=== PATIENT | male | born 1950 | race Caucasian/White ===

== ENCOUNTER 2017-11-02 07:35 | Day surgery (SDC) | payer MEDICARE, BC ==
[2017-11-02] MEDS ORDERED: fentaNYL 100 MCG/2 ML SDV ONE (08:14)
[2017-11-02] MEDS ORDERED: Propofol 200 MG/20 ML SDV ONE (08:14)
[2017-11-02] MEDS ORDERED: Cyanocobalamin (Vitamin B12) 1,000 MCG/ML SDV IM ONE (08:15)
[2017-11-02] MEDS ORDERED: Midazolam 1 MG/ML 2 ML SDV ONE (08:15)
[2017-11-02] MEDS ORDERED: Lactated Ringers 1,000 ML IV ONE (08:15)
[2017-11-02] MEDS ORDERED: Glycopyrrolate 0.2 MG/ML 2 ML SYRINGE IVPUSH ONE (08:45)
[2017-11-02] MEDS ORDERED: MVI, Adult with Vitamin K 10 ML, Thiamine 200 MG, Chromium/Copper/Mang/Selen/Zn 1 ML in... IV ONE ×4 (09:45)
[2017-11-02 12:15] VITALS: BP 137/4
--- NOTE | 2017-11-07 18:09 | OR ---
DATE OF PROCEDURE: 11/02/2017 PREOPERATIVE DIAGNOSIS: Upper abdominal pain. POSTOPERATIVE DIAGNOSIS: Normal endoscopic examination status post distal gastrectomy with Lyn-en-Y gastrojejunostomy. OPERATIVE PROCEDURE: Upper GI endoscopy. ANESTHESIA: IV sedation. INDICATION FOR PROCEDURE: The patient is status post a distal gastrectomy with Lyn-en-Y gastrojejunostomy in August 2015 for gastric outlet obstruction. The patient presents now with some abdominal pain. This appears to be somewhat related to his gastrostomy tube location, which has little of a dimple at the skin level, but otherwise appears to be postprandial, may be related to partial small bowel obstruction. Plan is to proceed with upper GI endoscopy with biopsies as indicated. Potential risks including bleeding and perforation were discussed, and the patient wishes to proceed. DESCRIPTION OF PROCEDURE: The patient was taken to the operating room and placed in a left lateral decubitus position. IV sedation was administered, after which the upper GI endoscope was passed orally through the length of the esophagus, into the stomach, and from there through the gastrojejunostomy roughly 20 cm into the Lyn limb. Findings overall were entirely normal. There is no significant inflammation at the esophagus, EG junction or within the stomach. The gastrojejunostomy was mildly patent and no bile reflux was noted within the Lyn limb. The scope was then withdrawn and the procedure concluded. Following was the obvious dimple at the point where the gastrostomy tube had been in place, which would be an expected finding. The patient will be going to [place] for vacation. We will see him back when he gets back from that to discuss further treatment. Alfonso Stone MD /[id number]
== END 2017-11-02 12:25 | disposition home or self-care (01) ==
LOC: JP.SDS 07:35
PROVIDERS: ATTEND Surgery
DX: R10.10 Upper abdominal pain, unspecified (principal); Z90.3 Acquired absence of stomach [part of]; Z98.890 Other specified postprocedural states
CPT/HCPCS: 43235; J2250; J2704; J3010; J3411; J3420; J7120

== ENCOUNTER 2018-01-03 07:30 | Inpatient (IN) | payer MEDICARE, BC ==
[~2018-01-03 07:30] MED LIST: Bupivacaine 0.5%/EPINEPHrine 1:200,000 50 ML MDV ONE
[2018-01-03] MEDS ORDERED: Acetaminophen 500 MG Tab PO ONE (10:00)
[2018-01-03] MEDS ORDERED: Gabapentin 300 MG Cap PO ONE (10:00)
[2018-01-03] MEDS ORDERED: Scopolamine 1.5 MG Transdermal Patch TRDERM SCH (10:00)
[2018-01-03] MEDS ORDERED: Ondansetron 4 MG/2 ML SDV ONE (10:01)
[2018-01-03] MEDS ORDERED: Propofol 200 MG/20 ML SDV ONE (10:01)
[2018-01-03] MEDS ORDERED: Glycopyrrolate 0.2 MG/ML 5 ML MDV ONE (10:01)
[2018-01-03] MEDS ORDERED: Dexamethasone 4 MG/ML SDV ONE (10:01)
[2018-01-03] MEDS ORDERED: Neostigmine Methylsulfate 1 MG/ML 5 ML Syringe ONE (10:01)
[2018-01-03] MEDS ORDERED: fentaNYL 250 MCG/5 ML SDV ONE (10:01)
[2018-01-03] MEDS ORDERED: Succinylcholine 200 MG/10 ML MDV ONE (10:01)
[2018-01-03] MEDS ORDERED: Dextrose 5%-Lactated Ringers 1,000 ML IV SCH (10:30)
[2018-01-03] MEDS ORDERED: Albuterol/Ipratropium 3.0-0.5 MG/3 ML Neb Soln NEB ONE (11:00)
[2018-01-03] MEDS ORDERED: cefOXitin 2 GM in Sodium Chloride 0.9% 50 ML IV ONE (11:30)
[2018-01-03] MEDS ORDERED: Lidocaine 2% 100 MG/5 ML Syringe IVPUSH ONE (11:45)
[2018-01-03] MEDS ORDERED: Ketamine 500 MG/5 ML MDV IV SCH (11:45)
[2018-01-03] MEDS ORDERED: Rocuronium 50 MG/5 ML Vial ONE ×2 (11:53→13:33)
[2018-01-03] MEDS ORDERED: Lidocaine 0.4%/D5W 2 GM/500 ML BAG IV SCH (12:00)
[2018-01-03] MEDS ORDERED: Ropivacaine 48 ML, Dexamethasone 8 MG, EPINEPHrine 0.4 MG, Sodium Chloride 0.9% 29.6 ML NERVRT SCH ×4 (12:00)
[2018-01-03] MEDS ORDERED: ePHEDrine 50 MG/ML SDV ONE (12:26)
[2018-01-03] MEDS ORDERED: HYDROmorphone/Normal Saline 15 MG/30 ML PCA IV PRN (12:30)
[2018-01-03] MEDS ORDERED: Naloxone 0.4 MG/ML SDV IV PRN (12:30)
[2018-01-03] MEDS ORDERED: Meropenem 500 MG SDV ONE (12:52)
[2018-01-03] MEDS ORDERED: fentaNYL 100 MCG/2 ML SDV ONE (13:12)
[2018-01-03] MEDS ORDERED: Lactated Ringers 1,000 ML ONE (13:17)
[2018-01-03] MEDS ORDERED: Phenylephrine 1% 10 MG/ML SDV ONE (14:29)
[2018-01-03] MEDS ORDERED: Labetalol 20 MG/4 ML Syringe IVPUSH PRN (17:00)
[2018-01-03] MEDS ORDERED: hydrOXYzine HCl 100 MG/2 ML SDV IM PRN (17:00)
[2018-01-03] MEDS ORDERED: Ondansetron 4 MG/2 ML SDV IVPUSH PRN (17:00)
[2018-01-03] MEDS ORDERED: 50% Dextrose in Water 50 ML Syringe IVPUSH PRN (17:00)
[2018-01-03] MEDS ORDERED: MVI, Adult with Vitamin K 10 ML, Thiamine 100 MG, Chromium/Copper/Mang/Selen/Zn 1 ML in... IV SCH ×4 (17:00)
[2018-01-03] MEDS ORDERED: Glucagon,Human Recombinant 1 MG Vial IM PRN (17:00)
[2018-01-03] MEDS ORDERED: diphenhydrAMINE 50 MG/ML SDV IVPUSH PRN (17:00)
[2018-01-03] MEDS ORDERED: Metoclopramide 10 MG/2 ML SDV IVPUSH PRN (17:00)
[2018-01-03] MEDS: Acetaminophen Soln 650 MG/20.3 ML UD Cup PO SCH ×2 (17:54→22:14)
[2018-01-03] MEDS: Pantoprazole 40 MG Vial IVPUSH SCH (17:57)
[2018-01-03] MEDS: Insulin Aspart 100 Units/ML 3 ML Pen SUBCUT PRN ×2 (18:11→22:58)
[2018-01-03] MEDS: cefOXitin 2 GM in Sodium Chloride 0.9% 50 ML IV SCH (18:21)
[2018-01-03] MEDS ORDERED: Cyclobenzaprine 10 MG Tab PO ONE (20:24)
[2018-01-03] MEDS ORDERED: Cyclobenzaprine 10 MG Tab PO PRN (20:27)
[2018-01-03] MEDS: Gabapentin 250 MG/5 ML Solution ML 470 ML Bottle PO SCH (20:57)
[2018-01-03] MEDS: Heparin Sodium 5,000 Units/ML Vial SUBCUT SCH (20:57)
[2018-01-04] MEDS: Dextrose 5%-Lactated Ringers 1,000 ML IV SCH ×2 (00:02→06:09)
[2018-01-04] MEDS: cefOXitin 2 GM in Sodium Chloride 0.9% 50 ML IV SCH ×3 (00:14→11:39)
[2018-01-04] MEDS ORDERED: Iohexol 647 MG/ML 50 ML SDV PO STA (03:04)
[2018-01-04] MEDS: Acetaminophen Soln 650 MG/20.3 ML UD Cup PO SCH ×4 (04:10→23:21)
[2018-01-04] MEDS: Heparin Sodium 5,000 Units/ML Vial SUBCUT SCH ×3 (04:10→21:05)
[2018-01-04] MEDS: Insulin Aspart 100 Units/ML 3 ML Pen SUBCUT PRN (04:15)
[2018-01-04] MEDS: Celecoxib 200 MG Cap PO SCH (07:18)
[2018-01-04] MEDS: SCOPOLAMINE PATCH CHECK TOP SCH (08:00)
[2018-01-04] MEDS ORDERED: Ondansetron 4 MG Tab.DIS PO PRN (08:05)
[2018-01-04] MEDS ORDERED: Formoterol/Mometasone 200-5 MCG 8.8 GM Inhaler IH SCH (08:30)
[2018-01-04] MEDS: Formoterol/Mometasone 200-5 MCG 8.8 GM Inhaler IH SCH ×2 (09:20→21:05)
--- NOTE | 2018-01-04 10:19 | CR ---
No gross evidence for contrast leakage. Contrast within small bowel loops within the left upper quadr ant.
[2018-01-04] MEDS: Liraglutide (rDNA Origin) 0.6 MG/0.1 ML 3 ML Pen SUBCUT SCH (10:43)
[2018-01-04] MEDS: Aspirin 81 MG Tab.EC PO SCH (10:44)
[2018-01-04] MEDS: DULoxetine 30 MG Cap PO SCH (10:44)
[2018-01-04] MEDS: Tamsulosin 0.4 MG Cap.ER PO SCH (10:44)
[2018-01-04] MEDS: Lisinopril 10 MG Tab PO SCH (10:46)
[2018-01-04] MEDS: Gabapentin 250 MG/5 ML Solution ML 470 ML Bottle PO SCH ×3 (11:37→21:05)
--- NOTE | 2018-01-04 14:45 | PN ---
DATE OF SERVICE: 01/04/2018 SUBJECTIVE: Sushant is postop day one. He has been quite sleepy and had slurred speech. Lidocaine was discontinued. Oral intake was 190. Blood sugar was 275. He states his pain is controlled. REVIEW OF SYSTEMS: Remainder of review of systems negative for any pertinent positives and negatives. OBJECTIVE: GENERAL: Sushant Escobedo is a 67-year-old male. He is quite sleepy, but answers questions appropriately. VITAL SIGNS: TPR is 100.4, 69, 18, and blood pressure 156/78. HEENT: Negative. NECK: Supple. HEART: Regular rate and rhythm. LUNGS: Clear. ABDOMEN: Dressing is dry and intact. Abdominal binder is on. EXTREMITIES: Without peripheral edema. ASSESSMENT: Exploratory laparotomy for partial small-bowel obstruction, bowel resection, and lysis of adhesions. Date of surgery, 01/03/2018. PLAN: 1. Schedule and have consent signed for delayed primary closure, IV sedation, Sunday01/05/2018, Alfonso Stone MD. N.p.o. after midnight. DC D5LR. Lactated Ringer IV at 100 mL per hour. Home medications were restarted: Metformin 500 mg p.o. b.i.d., Flomax 0.4 mg p.o. daily, aspirin 81 mg daily, lisinopril 10 mg p.o. daily, and Victoza 1.8 subcu daily. 2. Step two gastric bypass diet without cereal, good pulmonary toilet, and Tovar catheter was discontinued. We will evaluate him p.r.n. or in a.m. Minal Resendiz PA-C /[id number]
[2018-01-04] MEDS: metFORMIN 500 MG Tab PO SCH (16:54)
[2018-01-04] MEDS: Pantoprazole 40 MG Vial IVPUSH SCH (16:54)
[2018-01-04] MEDS: MVI, Adult with Vitamin K 10 ML, Thiamine 100 MG, Chromium/Copper/Mang/Selen/Zn 1 ML in... IV SCH ×4 (16:57)
[2018-01-05] MEDS: Lactated Ringers 1,000 ML IV SCH ×2 (02:59→09:42)
[2018-01-05] MEDS: Acetaminophen Soln 650 MG/20.3 ML UD Cup PO SCH ×4 (04:36→23:06)
[2018-01-05] MEDS: Heparin Sodium 5,000 Units/ML Vial SUBCUT SCH ×3 (04:42→20:03)
[2018-01-05] MEDS ORDERED: Bupivacaine 0.5% 50 ML MDV ONE (06:46)
[2018-01-05] MEDS ORDERED: Lidocaine 1% with EPINEPHrine 1:100,000 50 ML MDV ONE (06:46)
[2018-01-05] MEDS ORDERED: Meropenem 500 MG SDV ONE (06:46)
[2018-01-05] MEDS ORDERED: Ropivacaine 48 ML, Dexamethasone 8 MG, EPINEPHrine 0.4 MG, Sodium Chloride 0.9% 29.6 ML NERVRT SCH ×4 (07:45)
[2018-01-05] MEDS ORDERED: Propofol 200 MG/20 ML SDV ONE (07:53)
[2018-01-05] MEDS ORDERED: fentaNYL 250 MCG/5 ML SDV ONE (07:54)
[2018-01-05] MEDS ORDERED: Cyanocobalamin (Vitamin B12) 1,000 MCG/ML SDV IM ONE (09:00)
[2018-01-05] MEDS: Gabapentin 250 MG/5 ML Solution ML 470 ML Bottle PO SCH ×3 (09:44→20:03)
[2018-01-05] MEDS: SCOPOLAMINE PATCH CHECK TOP SCH (09:44)
[2018-01-05] MEDS: Celecoxib 200 MG Cap PO SCH (09:47)
[2018-01-05] MEDS: Formoterol/Mometasone 200-5 MCG 8.8 GM Inhaler IH SCH ×2 (09:47→20:03)
[2018-01-05] MEDS: Tamsulosin 0.4 MG Cap.ER PO SCH (09:48)
[2018-01-05] MEDS: Lisinopril 10 MG Tab PO SCH (09:48)
[2018-01-05] MEDS: Aspirin 81 MG Tab.EC PO SCH (09:50)
[2018-01-05] MEDS: metFORMIN 500 MG Tab PO SCH (09:50)
[2018-01-05] MEDS: DULoxetine 30 MG Cap PO SCH (09:50)
[2018-01-05] MEDS: Liraglutide (rDNA Origin) 0.6 MG/0.1 ML 3 ML Pen SUBCUT SCH (09:55)
[2018-01-05] MEDS ORDERED: Lactated Ringers 1,000 ML IV SCH (11:00)
[2018-01-05] MEDS: MVI, Adult with Vitamin K 10 ML, Thiamine 100 MG, Chromium/Copper/Mang/Selen/Zn 1 ML in... IV SCH ×4 (16:59)
[2018-01-05] MEDS: Pantoprazole 40 MG Tab.CR PO SCH (17:02)
[2018-01-06] MEDS: Heparin Sodium 5,000 Units/ML Vial SUBCUT SCH ×3 (03:16→19:19)
[2018-01-06] MEDS: Acetaminophen Soln 650 MG/20.3 ML UD Cup PO SCH ×4 (05:47→23:27)
[2018-01-06] MEDS: Celecoxib 200 MG Cap PO SCH (07:31)
[2018-01-06] MEDS: HYDROmorphone 2 MG Tab PO PRN ×3 (07:31→15:42)
[2018-01-06] MEDS ORDERED: Lactated Ringers 1,000 ML IV SCH (08:15)
[2018-01-06] MEDS: Lisinopril 10 MG Tab PO SCH (10:06)
[2018-01-06] MEDS: Formoterol/Mometasone 200-5 MCG 8.8 GM Inhaler IH SCH ×2 (10:06→20:44)
[2018-01-06] MEDS: Aspirin 81 MG Tab.EC PO SCH (10:06)
[2018-01-06] MEDS: Tamsulosin 0.4 MG Cap.ER PO SCH (10:06)
[2018-01-06] MEDS: DULoxetine 30 MG Cap PO SCH (10:07)
[2018-01-06] MEDS: Gabapentin 250 MG/5 ML Solution ML 470 ML Bottle PO SCH ×3 (10:10→20:44)
[2018-01-06] MEDS ORDERED: Magnesium Hydroxide 400 MG/5 ML Susp 30 ML Cup PO ONE (13:45)
[2018-01-06] MEDS ORDERED: Magnesium Hydroxide 400 MG/5 ML Susp 30 ML Cup PO PRN (13:45)
[2018-01-06] MEDS ORDERED: Bisacodyl 10 MG Supp RECTAL PRN (13:45)
[2018-01-06] MEDS: Pantoprazole 40 MG Tab.CR PO SCH (15:42)
[2018-01-06] MEDS ORDERED: MVI, Adult with Vitamin K 10 ML, Thiamine 100 MG, Chromium/Copper/Mang/Selen/Zn 1 ML in... IV SCH ×4 (16:00)
[2018-01-07] MEDS: Heparin Sodium 5,000 Units/ML Vial SUBCUT SCH (05:06)
[2018-01-07] MEDS: Acetaminophen Soln 650 MG/20.3 ML UD Cup PO SCH (05:06)
[2018-01-07] MEDS: Celecoxib 200 MG Cap PO SCH (07:32)
[2018-01-07] MEDS: Formoterol/Mometasone 200-5 MCG 8.8 GM Inhaler IH SCH (07:47)
[2018-01-07 08:31] VITALS: BP 119/73
[2018-01-07] MEDS: Aspirin 81 MG Tab.EC PO SCH (09:25)
[2018-01-07] MEDS: DULoxetine 30 MG Cap PO SCH (09:25)
[2018-01-07] MEDS: Lisinopril 10 MG Tab PO SCH (09:25)
[2018-01-07] MEDS: Tamsulosin 0.4 MG Cap.ER PO SCH (09:25)
[2018-01-07] MEDS: Gabapentin 250 MG/5 ML Solution ML 470 ML Bottle PO SCH (09:35)
--- NOTE | 2018-01-07 17:26 | PN ---
DATE OF SERVICE: 01/05/2018 The patient has been afebrile with stable vital signs. Oral intake has been fair. We will back down the IV somewhat further. His blood sugars have been running in the low 120s, so I think we will discontinue both the Victoza, metformin, and see how things go from the blood sugar standpoint, off the diabetic medications. He will have the delayed primary closure later this morning. We will keep him on the ADMIN ASSISTANT for today and then sequentially switch him to oral medication tomorrow. Alfonso Stone MD /[id number]
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
--- NOTE | 2018-01-07 17:47 | OR ---
DATE OF PROCEDURE: 01/05/2018 PREOPERATIVE DIAGNOSIS: Open abdominal incision. POSTOPERATIVE DIAGNOSIS: Open abdominal incision. PROCEDURE: Delayed primary closure of open abdominal incision. ANESTHESIA: IV sedation. INDICATION FOR PROCEDURE: This is a 67-year-old status post a small bowel resection and revision of gastrojejunostomy 48 hours ago. He is to undergo a delayed primary closure as at the time of original surgery, he was felt to be high risk for wound infection. Potential risks including bleeding and infection were reviewed, and the patient wishes to proceed. DETAILS OF PROCEDURE: The patient was taken to the operating room, placed in a supine position, sitting up roughly 30 degrees to minimize aspiration risk. The IV sedation was administered, after which the abdomen was prepped and draped. After the dressing had been taken down, the wound was judged to be clean. Bilateral mid abdominal transverse abdominis plane blocks were placed using continuous ultrasound and the midline incision as well as the single trocar site in the right midabdomen were anesthetized with 1% lidocaine mixed with Marcaine and irrigated with meropenem-containing saline solution. The midline incision was then drained with a 10-[place] round Bradley-Shaikh drain, brought through a stab wound, inferior to the main incision, which we fixed the skin with a 4-0 Vicryl skin stitch. The wound was then closed with a layer of 3-0 and 4-0 Vicryl stitch deep and je for the skin. Dressing was applied. The patient was taken to the recovery room in satisfactory condition. Alfonso Stone MD /[id number]
--- NOTE | 2018-01-08 04:44 | DISCH ---
ADDENDUM: DISPOSITION: Discharged to home. CONDITION: Stable and improving. FOLLOWUP APPOINTMENT: Minal Resendiz PA-C, at the [facility] on 01/17/2018 at 10 a.m. HOME MEDICATIONS: 1. Tylenol 650 mg q.6 hours for two weeks. 2. Celebrex 200 mg p.o. daily, #14. 3. Imodium A-D 2 mg oral as directed, #30. 4. Zofran ODT 4 mg q.4 hours p.r.n. nausea, #30. He is to resume his home medications of 1. Cymbalta 60 mg daily. 2. Neurontin 300 mg three times a day. 3. Prinivil 10 mg oral daily. 4. Protonix granules 40 mg oral daily. 5. Flomax 0.4 mg daily. He is to discontinue taking metformin, Victoza, and vitamin B12. DIET AFTER DISCHARGE: Step II gastric bypass diet without cereal for two weeks. ACTIVITY: No lifting greater than 10 pounds. Other activities after discharge: Walk six times daily. Driving, do not drive for one week. He may shower. Wear abdominal binder for six weeks, and then as tolerated. DISCHARGE INSTRUCTIONS: Notify provider if any fever, increased pain, nausea, or vomiting. SPECIAL INSTRUCTIONS: Use incentive spirometer 10 times every hour while awake for one week, and then as needed. Strip, empty, measure, and record Bradley-Shaikh drains four times a day; and when half full, bring record of drainage to clinic appointments. Check blood sugars every morning before eating, and bring record of results to clinic appointment.
--- NOTE | 2018-01-08 10:39 | DISCH ---
ADMISSION DIAGNOSES: 1. Partial small bowel obstruction. 2. Chronic obstructive pulmonary disease. 3. Dyspnea. 4. Vertigo. 5. Low back pain. 6. Depression. 7. Diabetes mellitus, type 2. 8. Hyperlipidemia. 9. Essential hypertension. 10.Obesity. 11.Hearing loss. 12.Cervical radiculopathy. DISCHARGE DIAGNOSES: 1. Laparoscopy turned to laparotomy with revision of gastrojejunostomy, small bowel resection and revision of the jejunostomy, small bowel stricturoplasty and takedown of gastrostomy for partial small bowel obstruction at the jejunostomy junction, distorted, angulated stomach proximal to gastrojejunostomy junction, focal stricture of distal small bowel, and stricture at the gastrostomy. Date of surgery was 01/03/2018. Surgeon was Alfonso Stone MD. 2. Delayed primary closure on 01/05/2018 for open abdominal incision. HISTORY: Sushant Escobedo is a 67-year-old male with history of postprandial abdominal pain. After preoperative evaluation and discussion of possible risks and possible complications, he wished to proceed with surgical procedure. HOSPITAL COURSE: Sushant had his surgery on 01/03/2018, with delayed primary closure on 01/05/2018. He had no operative complications. His pain was well managed. Activity was good. Blood sugars were within normal limits. His blood pressure medications were discontinued. He had a bowel movement and oral intake and adequate pain control. He received dietary education, and he was able to be discharged to home on 01/07/2018. PHYSICAL EXAMINATION: GENERAL: Sushant Escobedo is a pleasant 67-year-old male. VITAL SIGNS: Height is 5 feet 8.11 inches and weight is 211 pounds. Temperature of 97.6, pulse of 70, and blood pressure is 114/63. HEENT: Negative. NECK: Supple. HEART: Regular rate and rhythm. LUNGS: Clear. ABDOMEN: [place] are intact and 4 x 4 over KIYA drain. EXTREMITIES: Without peripheral edema.
--- NOTE | 2018-01-14 08:55 | OR ---
DATE OF PROCEDURE: 01/03/2018 PREOPERATIVE DIAGNOSES: 1. Partial small bowel obstruction associated with: a. Stricture of Lyn limb as it enters jejunojejunostomy. b. Separate small bowel stricture. 2. Distorted and acutely angulated stomach at the level of gastrojejunostomy. 3. Status gastrostomy. OPERATIVE PROCEDURES: Diagnostic laparoscopy converted to laparotomy with: 1. Revision and reconstruction of gastrojejunostomy (91477). 2. Small bowel resection as part of revision of jejunojejunostomy (16390). 3. Small bowel stricturoplasty (67780). 4. Takedown of gastrostomy (79747). ANESTHESIA: General. ASSISTANTS: 1. Minal Resendiz PA-C. 2. AJ Rodgers. 3. AJ Dang. INDICATION FOR PROCEDURE: This is a 67-year-old presenting with postprandial crampy abdominal pain. He was also noted to have some intermittent dysphagia referable to more solid-type meals. The plan is to proceed with laparoscopy and laparotomy if necessary, lysis of adhesions and/or small bowel resection as indicated. We will also look in the area of the gastrojejunostomy to see if there are any abnormalities in that region, accounting for some of his more proximal GI tract symptoms. Potential risks of the procedure including bleeding, infection, leaks from various GI tract closures, problems with bowel obstruction over time as well as the possibility of cardiopulmonary, septic, or hemorrhagic complications leading to were discussed, and the patient wishes to proceed. DETAILS OF PROCEDURE: The patient was taken to the operating room and placed in a supine position. After general endotracheal anesthesia was induced, he was converted to a lithotomy position. Tovar catheter was inserted, and the abdomen was prepped and draped. Initially, a transverse right abdominal incision was made, and the peritoneal cavity entered under direct vision with an Optiview trocar and inflated to 15 mmHg pressure with CO2. Initial examination showed a florid site of adhesions with there being several loops of small bowel quite adherent to the abdominal wall. Thus, a decision was made to proceed with an open laparotomy. At that point, bilateral subcostal transversus abdominis plane blocks were placed using standard solution with continuous ultrasound guidance. At this point, the trocar having been removed, the previous upper midline incision was reused, carried down through the skin and subcutaneous tissue, and into the peritoneal cavity. The adhesions were then sequentially lysed up to the point where the anatomy could be examined. The patient did have a previous gastrostomy, which was then taken down with the NOLAN stapler, and the overlying remaining gastric tissue as it entered the abdominal wall was then excised. The patient was noted to have a quite distorted gastrojejunostomy, likely related to some scarring associated with the previous gastrectomy and subsequent gastrostomy tube placement. At this point, a portion of the proximal stomach was then resected with a NOLAN stapler, and this then allowed de-angulation of the gastrojejunostomy. The gastrojejunostomy was then enlarged with an additional NOLAN stapler sequence between the proximal stomach and jejunum at the gastrojejunostomy. This was then performed within the stomach prior to some additional resection and closure of the stomach, which caused a widening of the gastrojejunostomy as to avoid any problems with ingestion with food getting caught in that area. Once this was completed, this was reinforced with some 3-0 Vicryl stitch. At this point, the area of Lyn limb was identified. The patient was noted to have a focal stricture where the Lyn limb had passed in a retrocolic manner. This was freed up, and this was then treated with a stricturoplasty with the bowel flipped over on itself at the point of the stricture, enterotomy being made at the apex of that flipped-over bowel, and firing of the NOLAN carrillo load between the 2 adjacent small bowel loops. This was then closed with a NOLAN purple load, thus completing the stricturoplasty. The patient was also noted to have a narrowing of the small bowel as it entered the jejunojejunostomy. The small bowel was then amputated at that level and a secondary jejunojejunostomy to reconstruct the Lyn limb anatomy was then accomplished with [id number] NOLAN load. To facilitate improvement of his diabetes, this anastomosis was carried out 200 cm proximal to the ileocecal valve with the remaining Lyn limb at this point being also around 130 cm. A portion of the small bowel at the end of the divided Lyn limb needed to be resected, due to inadequate blood supply, and this specimen was then delivered from the field. The [id number] enteroenterostomy was accomplished with internal firing of the NOLAN carrillo load, and the common opening closed with purple load, angles anastomosed, and mesenteric defect was then approximated with some 0 Ethibond stitch along with 4 mL of fibrin sealant. At that point, no further problems were noted. The abdomen was irrigated with antibiotic-containing saline solution. A single Bradley-Shaikh drain was then placed adjacent to the revised gastrojejunostomy. The midline fascia was then approximated with #2 Vicryl stitch. Subcutaneous tissue was then drained with a 10-[place] round Bradley-Shaikh drain and the incision was closed with je. Compressive dressing was applied. The patient was taken to the recovery room in a satisfactory condition. There were no evident complications. Physician assistant strength coach, Minal Resendiz, played an essential role in assisting in this case, helping to position the patient, retract structures as needed, as well as suturing and cutting sutures when indicated. Her presence improved patient safety and decreased the operative time. Alfonso Stone MD /[id number]
== END 2018-01-07 11:30 | disposition home or self-care (01) | DRG 328 ==
LOC: EDSTATUS 07:30 → JP.SDS 09:43 → JP.SDSSCHI 09:43 → JP.2SS 15:40 → UNDOADMIN 15:40
PROVIDERS: ADMIT Surgery; ATTEND Surgery
PROC: 0DBA0ZX Excision of Jejunum, Open Approach, Diagnostic (ICD-10-PCS; 2018-01-03)
PROC: 0DB60ZX Excision of Stomach, Open Approach, Diagnostic (ICD-10-PCS; 2018-01-03)
PROC: 0DP60UZ Removal of Feeding Device from Stomach, Open Approach (ICD-10-PCS; 2018-01-03)
PROC: 0DNW0ZZ Release Peritoneum, Open Approach (ICD-10-PCS; 2018-01-03)
PROC: 0DN80ZZ Release Small Intestine, Open Approach (ICD-10-PCS; 2018-01-03)
PROC: 0DJD4ZZ Inspection of Lower Intestinal Tract, Percutaneous Endoscopic Approach (ICD-10-PCS; 2018-01-03)
PROC: 0WQF0ZZ Repair Abdominal Wall, Open Approach (ICD-10-PCS; principal; 2018-01-05)
DX: K56.51 Intestinal adhesions [bands], with partial obstruction (principal); J44.9 Chronic obstructive pulmonary disease, unspecified; I10 Essential (primary) hypertension; F32.9 Major depressive disorder, single episode, unspecified; E11.9 Type 2 diabetes mellitus without complications; E78.5 Hyperlipidemia, unspecified; E66.09 Other obesity due to excess calories; Z68.32 Body mass index [BMI] 32.0-32.9, adult; Z87.891 Personal history of nicotine dependence; Z79.891 Long term (current) use of opiate analgesic; E88.81 Metabolic syndrome and other insulin resistance; M54.12 Radiculopathy, cervical region; H91.90 Unspecified hearing loss, unspecified ear; Z79.82 Long term (current) use of aspirin; Z48.1 Encounter for planned postprocedural wound closure; Z98.84 Bariatric surgery status
CPT/HCPCS: 74240; 74240-26; 82962; 88307; 94664; 94762; A9270-GY; C9113; J0171; J0330; J0694; J1100; J1170; J1644; J2001; J2185; J2370; J2405; J2704; J2710; J2795; J3010; J3410; J3411; J3420; J7030; J7042; J7050; J7120; J7620; Q9967

== ENCOUNTER 2018-06-07 06:41 | Day surgery (SDC) | payer MEDICARE, BC ==
[2018-06-07] MEDS ORDERED: Midazolam 1 MG/ML 2 ML SDV ONE (07:09)
[2018-06-07] MEDS ORDERED: Propofol 200 MG/20 ML SDV ONE (07:09)
[2018-06-07] MEDS ORDERED: fentaNYL 100 MCG/2 ML SDV ONE (07:09)
[2018-06-07] MEDS ORDERED: Cyanocobalamin (Vitamin B12) 1,000 MCG/ML SDV IM ONE (07:30)
[2018-06-07] MEDS ORDERED: Lactated Ringers 1,000 ML IV ONE (07:30)
[2018-06-07] MEDS ORDERED: Albuterol/Ipratropium 3.0-0.5 MG/3 ML Neb Soln NEB ONE (08:00)
[2018-06-07] MEDS ORDERED: Glycopyrrolate 0.2 MG/ML 2 ML SDV IVPUSH ONE (08:00)
[2018-06-07] MEDS ORDERED: MVI, Adult with Vitamin K 10 ML, Thiamine 200 MG, Chromium/Copper/Mang/Selen/Zn 1 ML in... IV ONE ×4 (08:30)
[2018-06-07 10:26] VITALS: BP 155/83
--- NOTE | 2018-06-11 06:55 | OR ---
DATE OF PROCEDURE: 06/07/2018 PREOPERATIVE DIAGNOSIS: Epigastric pain. POSTOPERATIVE DIAGNOSIS: Epigastric pain associated with pouch gastritis with inflammation extending 4-5 cm into Lyn limb. OPERATIVE PROCEDURE: Upper GI endoscopy with biopsies of gastric pouch for CLOtest. ANESTHESIA: IV sedation. INDICATIONS FOR PROCEDURE: The patient is status post partial gastrectomy, revision of a gastric bypass on 01/09, presents now with ongoing epigastric discomfort. The plan is to proceed with upper GI endoscopy with biopsies as indicated. Potential risks including bleeding and perforation were discussed and the patient wishes to proceed. DETAILS OF PROCEDURE: The patient was taken to the operating room, placed in the left lateral decubitus position. IV sedation was administered, after which the upper GI endoscope was passed orally through the length of the esophagus and into the gastric pouch, and from there through the gastrojejunostomy roughly 20 cm into the Lyn limb. The patient had a normal esophagus and EG junction area. As one got into the gastric pouch, this was noted to be somewhat reddened and edematous. The reddened and patchy edematous areas then extended roughly 4-5 cm into the Lyn limb. There were no erosions or ulcers per se, but there definitely was inflammation present from the pouch to that 4-5 cm distance into the Lyn limb. At that point biopsies were obtained from the gastric pouch, sent for CLOtest for H pylori and minimal bleeding from the biopsy sites were seen. The procedure was then concluded. The patient has already been on Protonix and at this point, we will add liquid Carafate 500 mg q.i.d. to be taken on an empty stomach. The patient will be following up with Minal Resendiz in early June. Alfonso Stone MD /[id number]
== END 2018-06-07 10:54 | disposition home or self-care (01) ==
LOC: JP.SDS 06:41
PROVIDERS: ATTEND Surgery
DX: K29.70 Gastritis, unspecified, without bleeding (principal); J45.909 Unspecified asthma, uncomplicated; Z98.84 Bariatric surgery status; Z88.5 Allergy status to narcotic agent
CPT/HCPCS: 43239; 87081; 94640; J2250; J2704; J3010; J3411; J3420; J3490; J7120; J7620-GY

== ENCOUNTER 2019-10-23 09:39 | Day surgery (SDC) | payer MEDICARE, BC ==
[2019-10-23] MEDS ORDERED: fentaNYL 100 MCG/2 ML SDV ONE (09:41)
[2019-10-23] MEDS ORDERED: Midazolam 1 MG/ML 2 ML SDV ONE (09:41)
[2019-10-23] MEDS ORDERED: Propofol 200 MG/20 ML SDV ONE (09:41)
[2019-10-23] MEDS ORDERED: Lactated Ringers 1,000 ML IV ONE (10:15)
[2019-10-23] MEDS ORDERED: Cyanocobalamin (Vitamin B12) 1,000 MCG/ML SDV IM ONE (10:30)
[2019-10-23] MEDS ORDERED: Glycopyrrolate 0.2 MG/ML 2 ML SDV IVPUSH ONE (11:00)
[2019-10-23] MEDS ORDERED: MVI, Adult with Vitamin K 10 ML, Thiamine 200 MG, Chromium/Copper/Mang/Selen/Zn 1 ML in... IV ONE ×4 (11:15)
[2019-10-23] MEDS ORDERED: Pantoprazole 40 MG Vial IVPUSH ONE (12:17)
[2019-10-23 13:36] VITALS: BP 142/95; PULSE 63
--- NOTE | 2019-11-02 13:13 | OR ---
DATE OF PROCEDURE: 10/23/2019 SURGEON: Alfonso Stone MD PREOPERATIVE DIAGNOSES: Dysphagia, status post Lyn-en-Y gastric bypass. POSTOPERATIVE DIAGNOSIS: Mild pouch gastritis without any strictures within upper on endoscopic examination. OPERATIVE PROCEDURE: Upper gastrointestinal endoscopy with biopsies of gastric pouch for CLOtest ([id number]). ANESTHESIA: IV sedation. INDICATION FOR PROCEDURE: This is a 68-year-old status post previous Lyn-en-Y gastric bypass, presenting with some dysphagia referable to the distal esophagus. Presently, he is not on any antisecretory medications. The plan is to proceed with upper GI endoscopy with biopsies and/or dilation as indicated. Potential risks including bleeding and perforation were discussed, and the patient wishes to proceed. DETAILS OF PROCEDURE: The patient was taken to the operating room and placed in a left lateral decubitus position. IV sedation was administered after which the upper GI endoscope was passed orally through the length of the esophagus into the gastric pouch, and from there, through the gastrojejunostomy roughly 20 cm into the Lyn limb. Findings included normal hypopharynx, larynx, upper esophageal sphincter, and esophageal body. At the EG junction, no significant inflammation was present. There was some mild redness and edema of the gastric pouch. There was no narrowing of the gastrojejunostomy. No marginal ulcers present at that level, and the remaining portions of the Lyn limb examined were unremarkable. At this point, biopsies were obtained from the gastric pouch and sent for CLOtest for H pylori. Minimal bleeding from the biopsy sites was seen, and the procedure was then concluded. PLAN: The patient will start Protonix 40 mg a day, and then, also in the event that this may be related to some esophageal spasm, Levsin 0.125 mg sublingual q.6 hours p.r.n. esophageal spasm. The patient will be following up with Minal Resendiz at [facility] in 1 month. Alfonso Stone MD /[id number]
== END 2019-10-23 13:25 | disposition home or self-care (01) ==
LOC: JP.SDS 09:39
PROVIDERS: ATTEND Surgery
DX: R13.19 Other dysphagia (principal); K29.70 Gastritis, unspecified, without bleeding; I10 Essential (primary) hypertension; E11.9 Type 2 diabetes mellitus without complications; E78.5 Hyperlipidemia, unspecified; J44.9 Chronic obstructive pulmonary disease, unspecified; Z98.84 Bariatric surgery status
CPT/HCPCS: 43239; 87081; C9113; J2250; J2704; J3010; J3411; J3420; J3490; J7120